=== PATIENT | female | born 1950 | race Asian ===

== ENCOUNTER 2016-11-29 09:54 | Inpatient (IN) | payer MEDICARE ==
[~2016-11-29] VITALS: Ht 160 cm; Wt 69.9 kg
[2016-11-29] MEDS ORDERED: VALS40TA4 PO (10:15)
[2016-11-29] MEDS ORDERED: GLIP5 PO (10:15)
[2016-11-29] MEDS ORDERED: METF500T4 PO (10:15)
[2016-11-29] MEDS ORDERED: SIMV5TAB6 PO (10:15)
[2016-11-29 10:43] LABS: BASOPHILS % (AUTO) 0.5 % (0.0-2.0); EOSINOPHILS % (AUTO) 1.1 % (1.0-6.0); HEMATOCRIT 41.6 % (36-46); HEMOGLOBIN 13.4 g/dL (12.0-16.0); LYMPHOCYTES # (AUTO) 1.2 K/uL (1.0-4.8); LYMPHOCYTES % (AUTO) 20.2 % (22.0-44.0); MEAN CORPUSCULAR HEMOGLOBIN 27.7 pg (26.0-34.0); MEAN CORPUSCULAR HGB CONC 32.2 G/dL (31.0-37.0); MEAN CORPUSCULAR VOLUME 86 fL (80-100); MONOCYTES # (AUTO) 0.4 K/uL (0.1-1.0); MONOCYTES % (AUTO) 6.1 % (2.0-9.0); NEUTROPHILS # (AUTO) 4.3 K/uL (1.8-7.7); NEUTROPHILS % (AUTO) 72.1 % (40.0-70.0); PLATELET COUNT (AUTO) 213 K/uL (150-450); RED BLOOD CELL COUNT(AUTO) 4.84 MIL/uL (4.00-5.20); RED CELL DISTRIBUTION WIDTH 13.7 % (11.5-14.5)
[2016-11-29 10:46] LABS: APPEARANCE,URINE CLEAR (CLEAR); GLUCOSE, URINE (UA) >=1000 mg/dL (NEGATIVE); KETONES,URINE NEGATIVE (NEGATIVE); LEUKOCYTE ESTERASE ,URINE SMALL (NEGATIVE); OCCULT BLOOD,URINE NEGATIVE (NEGATIVE); PROTEIN,URINE NEGATIVE (NEGATIVE)
[2016-11-29 10:50] LABS: ANION GAP 12 mmol/L (8-16); CALCIUM, TOTAL 9.3 mg/dL (8.8-10.5); CARBON DIOXIDE 26 mmol/L (22-29); CHLORIDE 101 mmol/L (98-107); CREATININE 1.11 mg/dL (0.60-1.30); GLOMERULAR FILTR. RATE CALC 49 mL/min (>60); POTASSIUM 4.4 mmol/L (3.5-5.1); SODIUM SERUM 139 mmol/L (136-145); UREA NITROGEN, BLOOD 17 mg/dL (7-18)
[2016-11-29 10:56] LABS: ALANINE AMINOTRANSFERASE 29 U/L (12-78); ALBUMIN 4.1 g/dL (3.4-5.0); ASPARTATE AMINOTRANSFERASE 10 U/L (15-37); BILIRUBIN,TOTAL 0.5 mg/dL (0.1-1.0); TOTAL PROTEIN, SERUM 8.4 g/dL (6.4-8.2)
[2016-11-29 11:11] LABS: ADD UA MICROSCOPIC YES
[2016-11-29 11:12] LABS: RBC,URINE 0-2 /HPF (0-2); SQUAMOUS EPITHELIAL CELL,UR Few /LPF (None Seen)
[2016-11-29] MEDS ORDERED: HALOPERIDOL 5 MG TABLET PO PRN (11:15)
[2016-11-29] MEDS ORDERED: ZOLPIDEM TARTRATE 10 MG TABLET PO PRN (11:15)
[2016-11-29] MEDS ORDERED: LORazepam 2 MG TABLET PO PRN (11:15)
[2016-11-29 11:21] LABS: GLUCOSE,POINT OF CARE 230 MG/DL (70-110)
[2016-11-29] MEDS ORDERED: LORazepam 2 MG TABLET PO ONE (12:00)
[2016-11-29 14:13] VITALS: BP 126/88
[2016-11-29 14:23] VITALS: BP 126/88
[2016-11-29 14:25] VITALS: BP 126/88
[2016-11-29] MEDS: MetFORMIN HCL 500 MG TABLET PO SCH (16:32)
[2016-11-29] MEDS: VALSARTAN 40 MG TABLET PO SCH (16:32)
[2016-11-29 17:53] VITALS: BP 113/62
[2016-11-29 19:59] VITALS: BP 113/62
[2016-11-30 01:18] VITALS: BP 138/69
[2016-11-30 05:32] LABS: GLUCOSE,POINT OF CARE 140 MG/DL (70-110)
[2016-11-30] MEDS: GlipiZIDE 5 MG TABLET PO SCH (07:05)
[2016-11-30 08:00] VITALS: BP 117/75
[2016-11-30] MEDS: VALSARTAN 40 MG TABLET PO SCH ×2 (08:08→17:05)
[2016-11-30] MEDS: SIMVASTATIN 5 MG TABLET PO SCH (08:08)
[2016-11-30 11:33] LABS: GLUCOSE,POINT OF CARE 138 MG/DL (70-110)
[2016-11-30] MEDS: MetFORMIN HCL 500 MG TABLET PO SCH (17:05)
[2016-11-30 20:36] VITALS: BP 127/67
[2016-12-01 05:42] LABS: GLUCOSE,POINT OF CARE 168 MG/DL (70-110)
[2016-12-01] MEDS: GlipiZIDE 5 MG TABLET PO SCH (07:00)
[2016-12-01 08:00] VITALS: BP 132/71
[2016-12-01] MEDS: SIMVASTATIN 5 MG TABLET PO SCH (08:54)
[2016-12-01] MEDS ORDERED: CIP250 PO (08:54)
[2016-12-01] MEDS: VALSARTAN 40 MG TABLET PO SCH (08:54)
[2016-12-01] MEDS ORDERED: CIPROFLOXACIN HCL 250 MG TABLET PO SCH (09:00)
== END 2016-12-01 10:00 | disposition home or self-care (01) | DRG 881 ==
LOC: EEVIPCON 09:55 → EMS 09:55 → 3EX 13:31
PROVIDERS: ADMIT Psychiatry & Neurology Child & Adolescent Psychiatry; ATTEND Psychiatry & Neurology Child & Adolescent Psychiatry
DX: F43.21 Adjustment disorder with depressed mood (principal); N39.0 Urinary tract infection, site not specified; E78.5 Hyperlipidemia, unspecified; F99 Mental disorder, not otherwise specified; E11.9 Type 2 diabetes mellitus without complications; I49.3 Ventricular premature depolarization; I10 Essential (primary) hypertension; Z87.891 Personal history of nicotine dependence; Z98.890 Other specified postprocedural states; Z98.49 Cataract extraction status, unspecified eye; Z79.84 Long term (current) use of oral hypoglycemic drugs; Z79.899 Other long term (current) drug therapy
CPT/HCPCS: 82962; 83036; 87086; 99285; G0480